=== PATIENT | male | born 1940 | race Hispanic/Latino ===

== ENCOUNTER 2017-10-31 17:01 | Inpatient (IN) | payer SELFPAY ==
--- NOTE | 2017-10-31 17:16 | EKG ---
Test Date: 2017-10-31 Test Time: 17:05:04 Laser Specialist: VALENCIA MEASUREMENT RESULTS: Intervals: Rate: 89 AL: 148 QRSD: 126 QT: 418 QTc: 508 [place]: P: 60 AL: 148 QRS: -46 T: 103 INTERPRETIVE STATEMENTS: Normal sinus rhythm Left axis deviation Nonspecific intraventricular block Lateral infarct, age undetermined T wave abnormality, consider lateral ischemia Abnormal ECG No previous ECG available for comparison Electronically Signed On 10-31-17 17:16:27 CDT by Spike Ordoñez
--- NOTE | 2017-10-31 17:37 | RAD REPORT ---
EXAM DESCRIPTION: Snow Single View10/31/2017 5:31 pm CLINICAL HISTORY: cough COMPARISON: none FINDINGS: [id number] bilateral pulmonary opacities are present. Small pleural effusions are s uspected. The heart is mildly enlarged IMPRESSION: CHF
[2017-10-31 17:42] LABS: Arterial Blood Carboxyhemoglob 1.6 % (0-1.5); Blood Gas Oxyhemoglobin 95.6 % (94-97); Blood O2 Saturation 97.4 % (92-98.5)
[2017-10-31 17:50] LABS: Absolute Monocytes 0.5 K/uL (0.1-1.3); Absolute Neutrophil 5.1 K/uL (1.8-8.0); Basophils % 0.6 % (0-1.3); Eosinophils % 1.9 % (0-4.4); Hematocrit 28.1 % (39.6-49.0); Lymphocytes % 14.5 % (15.3-44.8); MCH 27.6 pg (27.0-35.0); MCV 87.5 fL (80-100); MPV 8.1 fL (7.6-11.3); RBC Red Blood Cell Count 3.21 M/uL (4.33-5.43)
[2017-10-31 18:02] LABS: Albumin 2.9 g/dL (3.2-5.5); Bilirubin Direct 0.1 mg/dL (0-0.2); Bilirubin Total 0.6 mg/dL (0.3-1.2); Magnesium 2.1 mg/dL (1.8-2.5); Protein, Total 7.4 g/dL (6.0-8.3)
--- NOTE | 2017-10-31 18:36 | RAD REPORT ---
EXAM DESCRIPTION: CT - Head Brain Wo Cont - 10/31/2017 6:23 pm CLINICAL HISTORY: Lethargy, altered mental status COMPARISON: None. TECHNIQUE: Axial 5 mm thick images of the head were obtained without IV contrast. All CT scans are performed using dose optimization technique as appropriate and may include automated exposure control or mA/KV adjustment according to patient size. FINDINGS: No intracranial hemorrhage, mass, edema or shift of mid-line structures. No acute cortical based infarction. No cortical edema or sulcal effacement. Patient has moderately prominent atrophy a nd moderate chronic ischemic change. Old infarction changes are present in the frontal lobe white mat ter. No abnormal extra-axial fluid collections. Ventricles are in proportion to volume loss. Arterial and physiologic calcifications present. Atrophy includes the cerebellum. Mastoid air cells are clear. Frontal sinuses are completely opacified. Most of the ethmoid air cells are opacified. Maxillary sinuses are not at all imaged. No acute bony findings. IMPRESSION: Prominent atrophy and chronic ischemic change with no acute intracranial finding seen. Chronic ischemic changes can mask nonhemorrhagic acute infarction. MR brain followup can be obtained if there is ongoing concern for acute ischemia. Frontal and ethmoid sinus opacification. Maxillary sinuses are not imaged.
[2017-10-31] MEDS ORDERED: FUROSEMIDE 40 MG/4 ML VIAL ONE (19:17)
[2017-10-31] MEDS ORDERED: FUROSEMIDE 100 MG/10 ML VIAL IV ONE (19:18)
[2017-10-31 19:54] LABS: Urine Blood 3+ (NEG); Urine Glucose NEGATIVE (NEG); Urine Protein 3+ (NEG)
[2017-10-31 19:59] LABS: Barbiturates NEGATIVE; Benzodiazepines NEGATIVE; Cocaine NEGATIVE; METHAMPHETAM NEGATIVE; Opiates NEGATIVE
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
[2017-10-31 20:31] LABS: Phencyclidine ND; THC Cannibis ND
[2017-10-31] MEDS ORDERED: MORPHINE 2 MG/ML SYR IV PRN (22:35)
[2017-10-31] MEDS ORDERED: ONDANSETRON 4 MG/2 ML VIAL IV PRN (22:35)
[2017-10-31] MEDS: NA CHLORIDE 0.9% 1,000 ML IV SCH (23:35)
--- NOTE | 2017-11-01 05:36 | P.HP ---
Certification for Inpatient Patient admitted to: Inpatient With expected LOS: >2 Midnights Patient will require the following post-hospital care: None Practitioner: I am a practitioner with admitting privileges, knowledge of patient current condition, hospital course, and medical plan of care. Services: Services provided to patient in accordance with Admission requirements found in Title 42 Section 412.3 of the Code of Federal Regulations Patient History Date of Service: 10/31/17 Reason for admission: Respiratory distress/altered mental status History of Present Illness: Patient is a 77-year-old gentleman who presents to the hospital with altered mentation. Patient was seen in the emergency room and was found have pre renal azotemia along with altered mental status. Patient also has a slight urinary tract infection for what patient was started on IV antibiotics. Patient's lab data also revealed acute renal failure. Patient will be started on IV fluids and antibiotics and will reassess renal function in the morning. Nephrology consultation. Patient also has some respiratory distress and was placed on a BiPAP. Will continue this for now and reassess in the morning. Will also gently hydrate the patient as well. Continue to monitor renal function closely. Allergies No Known Allergies Allergy (Verified 11/01/17 00:40) Home Medications: Furosemide [Lasix] 40 mg PO DAILY 11/01/17 Isosorbide Mononitrate [Isosorbide Mononitrate ER] 30 mg PO DAILY 11/01/17 Metoprolol Tartrate [Lopressor] 100 mg PO BID 11/01/17 Tamsulosin [Flomax*] 1 cap PO DAILY 11/01/17 - Past Medical/Surgical History Has patient received pneumonia vaccine in the past: Yes Diabetic: Yes -: CHF -: renal disease -: UTI -: DM Past Surgical History: Patient denies surgical history - Family History Father Family History: Reviewed- Non-Contributory - Social History Smoking Status: Never smoker Alcohol use: No CD- Drugs: No Place of Residence: Home Review of Systems is unable to be obtained Physical Examination - Vital Signs Temperature: 97.2 F Blood Pressure: 146/97 Pulse: 87 Respirations: 18 Pulse Ox (%): 98 - Physical Exam General: Alert, In no apparent distress, Confused, Delirious HEENT: Atraumatic, PERRLA, Mucous membr. moist/pink, EOMI, Sclerae nonicteric Neck: Supple, 2+ carotid pulse no bruit, No LAD, Without JVD or thyroid abnormality Respiratory: Diminished, Crackles/rales, Rhonchi/gurgles Cardiovascular: Regular rate/rhythm, Normal S1 S2, No murmurs Gastrointestinal: Normal bowel sounds, Soft and benign, Non-distended, No tenderness, No rebound, No guarding Musculoskeletal: No clubbing, No tenderness, Swelling Integumentary: No rashes Neurological: Normal gait, Normal speech, Normal strength at 5/5 x4 extr, Normal tone, Sensation intact, Cranial nerves 3-12 intact, Normal affect Lymphatics: No axilla or inguinal lymphadenopathy - Studies Laboratory Data (last 24 hrs) 10/31/17 17:25: WBC 6.8, Hgb 8.9 L, Hct 28.1 L, Plt Count 433 H 10/31/17 17:25: Sodium 132 L, Potassium 4.0, BUN 76 H, Creatinine 3.66 H, Glucose 144 H, Magnesium 2.1, Total Bilirubin 0.6, AST 32, ALT 32, Alkaline Phosphatase 81 10/31/17 17:09: APTT Cancelled 10/31/17 17:09: B-Natriuretic Peptide Cancelled Assessment & Plan - Problems (Diagnosis) (1) [id number] kidney injury Current Visit: Yes Status: Acute (2) Altered mental status Current Visit: Yes Status: Acute (3) Respiratory distress Current Visit: Yes Status: Acute - Plan Plan: 1. Continue with IV hydration 2. Continue with IV antibiotics 3. Continue with pain control 4. NPO 5. Nephrology consultation; reassess for possible hemodialysis 6. Serial H&H, and we will monitor CBC, BMP, LFTs along with electrolytes. 7. GI and DVT prophylaxis Discharge Plan: Home Plan to discharge in: Greater than 2 days - Advance Directives Does patient have a Living Will: No Does patient have a Durable POA for Healthcare: No - Code Status/Comfort Care Code Status Assessed: Yes Code Status: Full Code Critical Care: No Time Spent Managing PTS Care (In Minutes): 45
[2017-11-01 05:41] LABS: Absolute Monocytes 0.8 K/uL (0.1-1.3); Absolute Neutrophil 6.7 K/uL (1.8-8.0); Basophils % 0.5 % (0-1.3); Eosinophils % 3.4 % (0-4.4); Hematocrit 28.4 % (39.6-49.0); Lymphocytes % 11.1 % (15.3-44.8); MCH 28.5 pg (27.0-35.0); MCV 88.2 fL (80-100); MPV 8.2 fL (7.6-11.3); Monocytes % 8.7 % (3.3-12.3); RBC Red Blood Cell Count 3.22 M/uL (4.33-5.43)
[2017-11-01 05:46] LABS: Protime INR 1.23
[2017-11-01 06:16] LABS: Albumin 2.6 g/dL (3.2-5.5); Bilirubin Total 0.5 mg/dL (0.3-1.2); Potassium 4.3 mEq/L (3.6-5.0); Protein, Total 6.9 g/dL (6.0-8.3)
--- NOTE | 2017-11-01 07:26 | RAD REPORT ---
EXAM DESCRIPTION: RAD - Chest Single View - 11/01/2017 6:29 am CLINICAL HISTORY: Dyspnea, acute kidney injury COMPARISON: October 31 TECHNIQUE: AP portable chest image was obtained 0616 hours . FINDINGS: Interstitial markings are diffusely prominent. Alveolar component is seen in the lower rig ht lung field. Trachea is midline. Prominent cardiomegaly is present similar or increased from prior imaging. Vascular engorgement is seen. No pneumothorax or enlarging pleural effusion. Small right ple ural effusion is suspected. No gross bony abnormality seen. No acute aortic findings suspected. IMPRESSION: Progressive CHF/volume overload pattern from prior day study. Airspace disease in the right base is still favored to be part of failure rather than superimposed pn eumonia.
[2017-11-01] MEDS ORDERED: NA CHLORIDE 0.9% 500 ML IV ONE (07:37)
[2017-11-01] MEDS ORDERED: Morphine 2 MG/2 ML SYR IV PRN (07:46)
[2017-11-01] MEDS: NA CHLORIDE 0.9% 1,000 ML IV SCH ×2 (08:23→18:10)
--- NOTE | 2017-11-01 11:25 | EKG ---
Test Date: 2017-11-01 Test Time: 08:54:12 Fagoter: VALENCIA MEASUREMENT RESULTS: Intervals: Rate: 88 AL: 144 QRSD: 126 QT: 412 QTc: 498 [place]: P: 0 AL: 144 QRS: -46 T: 94 INTERPRETIVE STATEMENTS: Normal sinus rhythm Possible Left atrial enlargement Left axis deviation Nonspecific intraventricular block Cannot rule out Anterior infarct, age undetermined T wave abnormality, consider lateral ischemia Abnormal ECG Compared to ECG 10/31/2017 17:05:04 No significant changes Electronically Signed On 11-01-17 11:23:42 CDT by Vijay Sandoval
[2017-11-01 11:58] LABS: Urine Appearance CLOUDY; Urine Bilirubin NEGATIVE (NEG); Urine Blood 3+ (NEG); Urine Color YELLOW; Urine Glucose NEGATIVE (NEG); Urine Protein 2+ (NEG); Urine Urobilinogen 0.2 mg/dL (0.2-1.0); Urine pH 5.5 (5.0-7.0)
[2017-11-01 12:03] LABS: Urine Microscopic Reflex ORDER UMIC
[2017-11-01 12:31] LABS: CKMB Creatine Kinase MB 4.2 ng/ml (0.3-4.0); Uric Acid 13.3 mg/dL (4.8-8.7)
[2017-11-01 13:50] LABS: Urine Bacteria 20-50 /HPF (NONE SEEN); Urine Culture Reflex Order REFLEXED; Urine RBC 20-50 /HPF (NONE SEEN)
[2017-11-01] MEDS: CEFTRIAXONE/SWI 1gm 1 GM/10 ML SYR IV SCH (14:05)
--- NOTE | 2017-11-01 14:18 | RAD REPORT ---
EXAM DESCRIPTION: US - Renal Ultrasound-Complete - 11/01/2017 1:47 pm CLINICAL HISTORY: Acute kidney injury. COMPARISON: None. FINDINGS: The right kidney is small in size and highly echogenic. The left kidney is normal in size with normal echogenicity and corticomedullary differentiation. The right kidney measures 6.3 x 3.2 x 02.9 cm. No hydronephrosis. Several small benign right renal cy sts. The left kidney measures 11.3 x 4.9 x 1.2 cm. No hydronephrosis. Several benign left renal cyst noted . Incidentally noted are bilateral pleural effusions. IMPRESSION: Small and highly echogenic right kidney compatible with underlying medical renal disease .
--- NOTE | 2017-11-01 18:16 | P.PN ---
Subjective Date of Service: 11/01/17 Chief Complaint: Respiratory distress/altered mental status The patient remain confused. No fever, no SOB. Physical Examination - Vital Signs Temperature: 98.9 F Blood Pressure: 142/86 Pulse: 97 Respirations: 18 Pulse Ox (%): 97 - Physical Exam General: Alert, In no apparent distress, Confused HEENT: Atraumatic, PERRLA, EOMI Neck: Supple, JVD not distended Respiratory: Normal air movement, Crackles/rales (bibasilar rales) Cardiovascular: Normal S1 S2, No gallops Gastrointestinal: Normal bowel sounds, No tenderness Musculoskeletal: No tenderness Integumentary: No rashes Neurological: Normal speech, Normal tone, Normal affect Assessment And Plan - Current Problems (Diagnosis) (1) UTI (urinary tract infection) Current Visit: Yes Status: Acute Qualifiers: Urinary tract infection type: acute cystitis Hematuria presence: without hematuria Qualified Code(s): N30.00 - Acute cystitis without hematuria (2) Acute encephalopathy Current Visit: Yes Status: Acute (3) Rtsvw-ri-vkbfrqy kidney injury Onset Date: 11/01/17 Current Visit: Yes Status: Acute Qualifiers: Acute renal failure type: unspecified Chronic kidney disease stage: unspecified stage Qualified Code(s): N17.9 - Acute kidney failure, unspecified ; N18.9 - Chronic kidney disease, unspecified; N18.9 - Chronic kidney disease, unspecified (4) Respiratory distress Onset Date: 11/01/17 Current Visit: Yes Status: Acute - Plan #1 acute encephalopathy: due to multiple etiology, including UTI, renal impairment. He is still confused. Continue monitoring. #2 Acute on CKD: creatinine is worse today. Follow up Dr Wynne. #3 UTI: urine culture in process. Continue empiric Ceftriaxone.
[2017-11-01] MEDS: ACETAMINOPHEN 500 MG TAB PO PRN (18:17)
--- NOTE | 2017-11-02 03:59 | CON ---
Date of Consultation: 11/01/2017 Additional Consulting Physician: Dr. Sawyer. Reason For Consultation: Elevated BUN and creatinine, fluid management. History Of Present Illness: This is a 77-year-old gentleman. All the information has been obtained by the help of a ct technologist, Mr. Zeng, the charge nurse. This is a 77-year-old gentleman with signi ficant past medical history of diabetes complicated with neuropathy and nephropathy, hypertension, hy perlipidemia, coronary artery disease complicated with congestive heart failure. The patient came to the hospital with altered mental status, found to have elevated BUN and creatinine. For that reason , we have been consulted. According to the patient, the patient known to have chronic kidney disease . Follow up with [employer] in chief newspaper in [place], but never mentioned that he goes to dialysis. The patient denied taking nonsteroidal. No recent change in his medication. No IV contrast. According to the patient, the patient being seen by the editor in chief newspaper every month lately, which means he is getting adv anced. The patient, no change in his medication. No other hospitalization. Primary workup for the patient show creatinine of 3.8 with GFR of 16. For that reason, we have been consulted. Past Medical History: Include: 1.Diabetes, complicated with neuropathy and nephropathy. 2.Chronic kidney disease, unknown stage. 3.Coronary artery disease complicated with congestive heart failure. 4.Hyperlipidemia. Home Medications: Include: 1.Lasix. 2.Isosorbide. 3.Metoprolol. 4.Flomax. Family History: Positive for hypertension and diabetes. Allergies: NO KNOWN DRUG ALLERGY. Social History: Denies smoking, denies drinking, denies drugs abuse. Current Medications: In the hospital include: 1.Ceftriaxone. 2.Morphine. 3.Zofran. Review of Systems: Head and Neck: No red eye. No ear pain. GI: No nausea, no vomiting. : No polyuria. No dysuria. No hematuria. FARMHAND: Not applicable. Respiratory: No shortness of breath. Cardiovascular: No chest pain. Neuro: No weakness. Physical Examination: Vital Signs: When I saw the patient, blood pressure 136/89, pulse of 97, afebrile. Chest: Clear to auscultation. Heart: S1, S2. Regular. Abdomen: Soft, nontender. Extremities: No edema. Neurologic: Alert and oriented x3. No tremor. Laboratory Data: Sodium 139, potassium 4.3, bicarb 28, chloride 103, BUN 73, creatinine 3.8, calcium 8.7, uric acid 13.3, albumin 2.6. WBC 8.8, H and H 9.2/28.4, platelets 402. WBC of 50 in the urine , +2 protein. Urine drug screen was negative. Assessment And Plan: 1.Acute kidney injury on chronic kidney disease, secondary to poor perfusion, acute tubular necrosis , superimposed with the diuresis use on the dry side. I am going to start the patient on normal sali ne 50 per hour and we will follow up the patient. We will go ahead and get renal ultrasound. UA wit h a protein-creatinine and with quantify urine. Request the record from his primary editor in chief newspaper and we will follow up. 2.We will hold on the Lasix for the time being. 3.Hypertension, controlled, optimal. Keep holding Lasix. We will follow up. 4.Pneumonia. Continue current antibiotic. 5.Urinary tract infection. I agree with the current dose of antibiotic. We will follow up culture. 6.Diabetes, as by Primary. 7.Altered mental status mostly metabolic encephalopathy secondary to sepsis, recovering. We will fo llow up. Case discussed with the patient, verbalized understanding. Discussed with primary charge nurse. CONNIE/ALFONSO Voice ID: [id number] Report ID: [id number]
[2017-11-02] MEDS: NA CHLORIDE 0.9% 1,000 ML IV SCH (05:00)
[2017-11-02 05:25] LABS: Absolute Lymphocytes (CBC) 0.8 K/uL (0.7-4.9); Absolute Neutrophil 14.6 K/uL (1.8-8.0); Basophils % 0.4 % (0-1.3); Hematocrit 27.1 % (39.6-49.0); MCH 27.9 pg (27.0-35.0); MCV 87.8 fL (80-100); MPV 7.9 fL (7.6-11.3); Monocytes % 5.8 % (3.3-12.3); RBC Red Blood Cell Count 3.09 M/uL (4.33-5.43)
[2017-11-02 05:51] LABS: Albumin 2.6 g/dL (3.2-5.5); BUN Blood Urea Nitrogen 73 mg/dL (6-20); Bicarbonate 28 mEq/L (21-31); Glucose Level 116 mg/dL (65-120); Phosphorus 5.4 mg/dL (2.5-4.3); Sodium Level 138 mEq/L (135-145)
[2017-11-02 06:19] LABS: Blood Morphology Comment NOT SEEN (NOT SEEN); Platelet Estimate ADEQ; Urine White Blood Cell Casts OK
--- NOTE | 2017-11-02 07:05 | RAD REPORT ---
EXAM DESCRIPTION: RAD - Chest Single View - 11/02/2017 6:42 am CLINICAL HISTORY: Shortness of breath COMPARISON: November 01, October 31 TECHNIQUE: AP portable chest image was obtained 0627 hours . FINDINGS: Lung volumes are low. Diffuse interstitial prominence, vascular engorgement and cardiomega ly are still present. Airspace component in the right lower lung field has increased slightly. This m ay be due to the poor inspiratory effort. Likewise, increased opacification left base is probably due to low lung volumes. Trachea is midline. No pneumothorax or enlarging pleural effusion. No gross bon y abnormality seen. No acute aortic findings suspected. IMPRESSION: CHF/volume overload pattern similar or slightly worse than prior day imaging. A more sha llow inspiratory effort accentuates heart, vasculature and lung markings. Airspace opacification is more pronounced in the right base. This is probably an asymmetric failure p attern though a superimposed right base pneumonia is possible.
[2017-11-02 08:12] LABS: UR CREAT 137.7 mg/dL
[2017-11-02] MEDS ORDERED: NA CHLORIDE 0.9% 1,000 ML IV SCH (09:00)
[2017-11-02] MEDS: CEFTRIAXONE/SWI 1gm 1 GM/10 ML SYR IV SCH (09:37)
--- NOTE | 2017-11-02 13:56 | PN ---
Date of Progress Note: 11/02/2017 Subjective: The patient was admitted to the hospital with acute kidney injury on advanced chronic ki dney disease. The patient started on hydration, feeling slightly better. Physical Examination: Vital Signs: Blood pressure 150/95, pulse of 100, afebrile. The patient had good urine output of 1 L. Chest: Crackles on the left base. Heart: S1, S2. Systolic murmur. Abdomen: Soft, nontender. Extremities: No edema. Laboratory Data: WBC 16.7, H and H 8.6/27.1, platelets 407. Sodium 138, potassium 4, bicarb 28, BUN 73, creatinine 3.4, GFR up to 17, calcium 8.4, phosphorus 5.4. Iron study still pending. PTH of 87 , albumin 2.6, corrected calcium 9.5. Protein creatinine is 1. Serology still pending. Renal ultra sound showing 6.3 on the right, 11.3 on the left. Chest x-ray, cardiomegaly with congestion. Medications: Current medications the patient on its include: 1.Ceftriaxone. 2.Tylenol. 3.Zofran. 4.IV fluid. 5.Morphine. Reviewing the record, apparently he was admitted to the hospital back in May 2017. At that time , creatinine 2 with GFR of 30. Assessment And Plan: 1.Acute kidney injury on chronic kidney disease/progression of his disease, multifactorial, secondar y to prerenal, on the recovery phase, looked to me on the normal volume side. I am going to disconti nue IV fluid and we will continue to monitor the patient. 2.Proteinuria with anemia. Workup is still pending. Mostly, it is secondary to diabetes. 3.Hypertension, controlled, not optimal. I will discontinue IV fluid and we will follow up the cat ent. 4.Pneumonia. Continue current antibiotic. Culture still pending. Current dose appropriate. 5.Urinary tract infection. We will follow up culture. Continue ceftriaxone. 6.Anemia. Waiting for the rest of the workup. Possible secondary to chronic kidney disease/iron de ficiency anemia. 7.Disproportion in the kidney size. Given his worsening in kidney function, I am going to go ahead and get renal scan to evaluate the perfusion and we will follow up the patient. This is to rule out any renal artery stenosis. Case discussed with the patient and the daughter by bedside, verbalized u nderstanding. Discussed with the charge nurse. TYRELL Voice ID: [id number] Report ID: [id number]
[2017-11-02 15:11] LABS: Transferrin 214 mg/dL (180-329)
--- NOTE | 2017-11-02 17:26 | P.PN ---
Subjective Date of Service: 11/02/17 Chief Complaint: Respiratory distress/altered mental status The patient is more alert today and also cooperative with his care. He was anxious to be discharged home or will leave AMA, but after explained what is his clinical status and the risk that will have if he goes home at this point, he decided to stay in the hospital. Physical Examination - Vital Signs Temperature: 98.2 F Blood Pressure: 138/90 Pulse: 99 Respirations: 20 Pulse Ox (%): 92 - Physical Exam General: Alert, In no apparent distress Respiratory: Clear to auscultation bilaterally, Normal air movement Cardiovascular: Regular rate/rhythm, Normal S1 S2 Gastrointestinal: Normal bowel sounds, No tenderness Musculoskeletal: No tenderness Integumentary: No rashes Neurological: Normal speech, Normal tone, Normal affect - Studies Medications List Reviewed: Yes Assessment And Plan - Current Problems (Diagnosis) (1) UTI (urinary tract infection) Current Visit: Yes Status: Acute Qualifiers: Urinary tract infection type: acute cystitis Hematuria presence: without hematuria Qualified Code(s): N30.00 - Acute cystitis without hematuria (2) Acute encephalopathy Current Visit: Yes Status: Acute (3) Nhzrd-qm-tprqwfy kidney injury Onset Date: 11/01/17 Current Visit: Yes Status: Acute Qualifiers: Acute renal failure type: unspecified Chronic kidney disease stage: unspecified stage Qualified Code(s): N17.9 - Acute kidney failure, unspecified ; N18.9 - Chronic kidney disease, unspecified; N18.9 - Chronic kidney disease, unspecified (4) Respiratory distress Onset Date: 11/01/17 Current Visit: Yes Status: Acute - Plan #1 acute encephalopathy: due to multiple etiology, including UTI, possible RLL pneumonia, renal impairment. He is more oriented today. Continue monitoring. #2 Acute on CKD: creatinine is still elevated but lower than yesterday. Follow up Dr Wynne. #3 UTI: urine culture shows gram negative rods. Continue Ceftriaxone. #4 pneumonia: CXR shows possible RLL consolidation. WBC count increased today. Will add Azithromycin to antibiotic plan.
[2017-11-02] MEDS: AZITHROMYCIN IV 500 MG in NA CHLORIDE 0.9% 250 ML IVPB SCH (19:52)
[2017-11-02] MEDS ORDERED: LORazepam 2 MG/ML VIAL IV ONE (23:30)
[2017-11-03 05:39] LABS: Albumin 2.4 g/dL (3.2-5.5); Phosphorus 5.7 mg/dL (2.5-4.3); Potassium 4.2 mEq/L (3.6-5.0)
[2017-11-03] MEDS: FUROSEMIDE 40 MG/4 ML VIAL ONE (06:27)
[2017-11-03] MEDS: CEFTRIAXONE/SWI 1gm 1 GM/10 ML SYR IV SCH (08:44)
[2017-11-03] MEDS: TAMSULOSIN 0.4 MG SR CAP PO SCH (08:45)
[2017-11-03] MEDS: ISOSORBIDE MONO SR 30 MG TAB PO SCH (08:45)
[2017-11-03] MEDS ORDERED: METOPROLOL TAR 50 MG TAB PO SCH (09:00)
[2017-11-03] MEDS: AZITHROMYCIN IV 500 MG in NA CHLORIDE 0.9% 250 ML IVPB SCH (09:04)
--- NOTE | 2017-11-03 09:14 | RAD REPORT ---
EXAM DESCRIPTION: NMAbdomen (Kidney) CLINICAL HISTORY: Acute kidney injury. COMPARISON: Ultrasound 11/01/2017 TECHNIQUE: Following intravenous administration of 10.4 mCi Tc99m MAG-3, posterior dynamic angiogra m and sequential static images of the kidneys were obtained. 40 mg Lasix was administered intravenous ly 10 minutes into the study. FINDINGS: Sequential static images show significant asymmetry of renal size. Uptake by the right dom seth, which is enlarged relative to the left, is significantly reduced. Both kidneys demonstrate signi ficant delay in excretory function. After Lasix, little change is seen in the delayed excretory funct ion from the left kidney. Slight excretion is noted involving the right kidney, however excretion is minimal. The T1/2 of excretion of activity is 7.5 minutes for the right kidney and 33 minutes for the left dom seth (normal T1/2 is <10 min; dilated but not obstructed collecting system T1/2 is >10 min but < 15 mi n and obstruction T1/2 is >15 - 20 min). The estimated contribution of the right kidney to total renal function is 66% and that of the left is 34%. IMPRESSION: Uptake in localization or pharmaceutical is seen involving the left kidney which is redu ad in size relative to the right. The lack of excretion from the left kidney may indicate underlying ATN. Poor uptake and localization of radiopharmaceutical by the right kidney with very minimal excretion. The right kidney overall appears enlarged.
[2017-11-03] MEDS ORDERED: FUROSEMIDE 40 MG/4 ML VIAL IV ONE (11:47)
[2017-11-03] MEDS: METOPROLOL TAR 25 MG TAB PO SCH ×2 (16:24→21:39)
--- NOTE | 2017-11-03 17:48 | PN ---
Date of Progress Note: 11/03/2017 Subjective: The patient has some shortness of breath today. No nausea. No vomiting. Physical Examination: Vital Signs: Blood pressure 100/67, pulse of 73, afebrile. The patient had urine output of 1 L. Chest: Crackles bilateral. Heart: S1, S2. Regular. Abdomen: Soft, nontender. Extremities: No edema. Laboratory Data: WBC 16.7, H and H 8.6/27.1, platelets 407. Sodium 136, potassium 4.2, bicarb 26, B UN 70, creatinine 3.5, calcium 8.3, phosphorus 5.7. Medications: Current medications the patient on its include: 1.Z-Daniel. 2.Meropenem. 3.Flomax. 4.Isosorbide. 5.Metoprolol. 6.Zofran. 7.Morphine. Assessment And Plan: 1.Chronic kidney disease, stage 4, advanced with acute kidney injury, slightly on the wet side. I a m going to go ahead and give him single dose of Lasix and we will monitor. 2.Hypertension, controlled, optimal. Continue current medication. We will go ahead given low blood pressure. I am going to go ahead and decrease his metoprolol to 25 mg. 3.Urinary tract infection secondary to ESBL. We will switch the patient to meropenem. TYRELL Voice ID: [id number] Report ID: [id number]
--- NOTE | 2017-11-03 18:43 | P.PN ---
Subjective Date of Service: 11/03/17 Chief Complaint: Respiratory distress/altered mental status more sleepy today, no fever. Physical Examination - Vital Signs Temperature: 98.4 F Blood Pressure: 123/80 Pulse: 74 Respirations: 16 Pulse Ox (%): 99 - Physical Exam General: Alert, In no apparent distress, Other (obtunded) Respiratory: Clear to auscultation bilaterally, Normal air movement Cardiovascular: Regular rate/rhythm, Normal S1 S2 Gastrointestinal: Normal bowel sounds, No tenderness Musculoskeletal: No tenderness Integumentary: No rashes Neurological: Normal speech, Normal tone, Normal affect - Studies Medications List Reviewed: Yes Assessment And Plan - Current Problems (Diagnosis) (1) UTI (urinary tract infection) Current Visit: Yes Status: Acute Qualifiers: Urinary tract infection type: acute cystitis Hematuria presence: without hematuria Qualified Code(s): N30.00 - Acute cystitis without hematuria (2) Acute encephalopathy Current Visit: Yes Status: Acute (3) Izwqd-ad-cgncxun kidney injury Onset Date: 11/01/17 Current Visit: Yes Status: Acute Qualifiers: Acute renal failure type: unspecified Chronic kidney disease stage: unspecified stage Qualified Code(s): N17.9 - Acute kidney failure, unspecified ; N18.9 - Chronic kidney disease, unspecified; N18.9 - Chronic kidney disease, unspecified (4) Respiratory distress Onset Date: 11/01/17 Current Visit: Yes Status: Acute - Plan #1 acute encephalopathy: due to multiple etiology, including UTI, possible RLL pneumonia, renal impairment. Today he is more obtunded, no fever #2 Acute on CKD: creatinine is still elevated. Follow up Dr Wynne, he recommend Lasix at this time. #3 UTI: urine culture shows E.Coli with ESBL. Antibiotics were switch to Meropenem. #4 pneumonia: CXR shows possible RLL consolidation. WBC count increased today. Continue IV abx.
[2017-11-03] MEDS ORDERED: Meropenem 500 MG VIAL IV SCH (21:00)
[2017-11-03] MEDS: Meropenem 500 MG in NA CHLORIDE 0.9% 100 ML IV SCH (21:41)
[2017-11-04] MEDS: LORazepam 2 MG/ML VIAL IV PRN (00:01)
[2017-11-04 05:27] LABS: Absolute Lymphocytes (CBC) 0.8 K/uL (0.7-4.9); Absolute Monocytes 0.7 K/uL (0.1-1.3); Absolute Neutrophil 7.2 K/uL (1.8-8.0); Basophils % 0.3 % (0-1.3); Eosinophils % 4.2 % (0-4.4); Hematocrit 25.8 % (39.6-49.0); Lymphocytes % 8.7 % (15.3-44.8); MCH 29.1 pg (27.0-35.0); MCV 87.6 fL (80-100); MPV 8.1 fL (7.6-11.3); RBC Red Blood Cell Count 2.94 M/uL (4.33-5.43)
[2017-11-04 05:42] LABS: Albumin 2.4 g/dL (3.2-5.5); Phosphorus 6.5 mg/dL (2.5-4.3); Potassium 4.4 mEq/L (3.6-5.0)
[2017-11-04] MEDS: TAMSULOSIN 0.4 MG SR CAP PO SCH (08:39)
[2017-11-04] MEDS: METOPROLOL TAR 25 MG TAB PO SCH ×2 (08:40→21:54)
[2017-11-04] MEDS: ISOSORBIDE MONO SR 30 MG TAB PO SCH (08:40)
[2017-11-04] MEDS: AZITHROMYCIN IV 500 MG in NA CHLORIDE 0.9% 250 ML IVPB SCH (08:42)
[2017-11-04] MEDS: Meropenem 500 MG in NA CHLORIDE 0.9% 100 ML IV SCH ×2 (08:42→21:53)
[2017-11-04 13:50] LABS: HBsAG Nonreactive (Nonreactive)
--- NOTE | 2017-11-04 16:40 | P.PN ---
Subjective Date of Service: 11/04/17 Primary Care Provider: BIANCA Davison Chief Complaint: Respiratory distress/altered mental status Subjective: Improving Physical Examination - Vital Signs Temperature: 97.5 F Blood Pressure: 119/78 Pulse: 80 Respirations: 18 Pulse Ox (%): 97 - Physical Exam General: Alert, In no apparent distress, Cooperative HEENT: Atraumatic Neck: Supple Respiratory: Crackles/rales (Bilateral) Cardiovascular: Normal pulses, Regular rate/rhythm Gastrointestinal: Normal bowel sounds, Soft and benign, Non-distended, No tenderness, No masses, No rebound, No guarding Musculoskeletal: No erythema, No tenderness, No warmth Integumentary: No erythema, No warmth, No cyanosis Neurological: Normal speech, Normal strength at 5/5 x4 extr, Normal tone - Studies Medications List Reviewed: Yes Assessment & Plan - Problems (Diagnosis) (1) Bghiv-cx-tbwtrxe kidney injury Onset Date: 11/01/17 Current Visit: Yes Status: Acute Plan: Patient still appears wet. Will continue with fluid restriction and Lasix. Will continue monitor renal function. Nephrology consulted. Await further recommendation. Will monitor chest x-ray s. Will monitor lab closely. Qualifiers: Acute renal failure type: unspecified Chronic kidney disease stage: stage 4 (severe) Qualified Code(s): N17.9 - Acute kidney failure, unspecified; N18.4 - Chronic kidney disease, stage 4 (severe); N18.4 - Chronic kidney disease , stage 4 (severe); N18.4 - Chronic kidney disease, stage 4 (severe); N18.4 - Chronic kidney disease, stage 4 (severe) (2) CHF (congestive heart failure) Onset Date: 11/01/17 Current Visit: Yes Status: Suspected Plan: Suspect congestive heart failure. Will order echocardiogram to assess. Will continue with fluid restriction and Lasix. Will monitor chest x-ray. Qualifiers: Heart failure type: systolic Heart failure chronicity: acute on chronic Qualified Code(s): I50.23 - Acute on chronic systolic (congestive) heart failure (3) Anemia Current Visit: Yes Status: Acute Plan: Will monitor closely. This is likely of chronic disease. Qualifiers: Anemia type: due to chronic kidney disease Chronic kidney disease stage: stage 4 (severe) Qualified Code(s): N18.4 - Chronic kidney disease, stage 4 ( severe); D63.1 - Anemia in chronic kidney disease; D63.1 - Anemia in chronic kidney disease (4) Hypertension Current Visit: Yes Status: Chronic Plan: Will continue with medication. Qualifiers: Hypertension type: essential hypertension Qualified Code(s): I10 - Essential (primary) hypertension (5) UTI (urinary tract infection) Current Visit: Yes Status: Acute Plan: Will continue with Merrem. Patient will need 7 days worth of antibiotic therapy. Patient will likely be here through the . Therefore will continue with antibiotic therapy until Tuesday. Will repeat blood cultures on Tuesday. Qualifiers: Urinary tract infection type: acute cystitis Hematuria presence: without hematuria Qualified Code(s): N30.00 - Acute cystitis without hematuria Discharge Plan: Home Plan to discharge in: Greater than 2 days Time Spent Managing Pts Care (In Minutes): 55
[2017-11-04] MEDS: FUROSEMIDE 40 MG/4 ML VIAL IV SCH (16:58)
[2017-11-04] MEDS: ENOXAPARIN 30 MG/0.3 ML SQ SCH (16:58)
[2017-11-04 17:21] LABS: HIV 1/2 Antibody Diff Not indicated.; HIV AG/AB 4TH GEN Non-reactive (Non-reactive)
[2017-11-04] MEDS: ALPRAZOLAM 0.5 MG TABLET PO PRN ×2 (17:37→21:54)
[2017-11-04 20:53] LABS: Albumin, (SPE) 2.8 g/dL (3.8-4.8); Alpha-1-Globulins 0.5 g/dL (0.2-0.3); Alpha-2-Globulins 0.7 g/dL (0.5-0.9); Gamma Globulins 1.8 g/dL (0.8-1.7); INTERPRETATION REPORT
[2017-11-04 21:36] LABS: Hepatitis C Virus RNA (PCR)log <1.18 log IU/mL
--- NOTE | 2017-11-05 02:59 | PN ---
Date of Progress Note: 11/04/2017 Subjective: The patient is complaining of some shortness of breath. The patient had ESBL UTI. Wait ing for arrangement for antibiotics. Physical Examination: Vital Signs: Blood pressure 139/89, pulse 92, and afebrile. Chest: Crackles bilateral. Heart: S1, S2. Regular. Abdomen: Soft, nontender. Extremities: +3 edema. Laboratory Data: WBC 9.2, H and H 8.6/25.8, and platelets 338. Sodium 136, potassium 4.4, bicarb 27 , BUN 78, creatinine 3.9, GFR of 15, calcium 8.2, phosphorus 6.8, albumin 2.4, and corrected calcium is 9.4. Medications: Current medications the patient is on include; 1.Meropenem 500 b.i.d. 2.Flomax. 3.Lovenox. 4.Isosorbide. 5.Metoprolol 25 b.i.d. 6.Lorazepam. 7.Lasix received yesterday 40. 8.Zofran. Assessment And Plan: 1.Chronic kidney disease, slow progression, over-volume. I am going to start the patient on daily d iuresis, and we will follow up. 2.Hypertension. We will utilize the blood pressure for more diuresis. I am going to go ahead and d iscontinue isosorbide. 3.Secondary hyperparathyroidism. We will start the patient on Tums. We will follow up. 4.Urinary tract infection, extended-spectrum beta-lactamase. Started on meropenem. We are waiting for outpatient arrangement for antibiotic. TYRELL Voice ID: [id number] Report ID: [id number]
[2017-11-05 05:43] LABS: Absolute Lymphocytes (CBC) 1.1 K/uL (0.7-4.9); Absolute Monocytes 0.7 K/uL (0.1-1.3); Absolute Neutrophil 5.7 K/uL (1.8-8.0); Basophils % 0.8 % (0-1.3); Eosinophils % 5.9 % (0-4.4); Hematocrit 28.2 % (39.6-49.0); Lymphocytes % 13.1 % (15.3-44.8); MCV 87.3 fL (80-100); MPV 8.2 fL (7.6-11.3); Monocytes % 9.2 % (3.3-12.3); RBC Red Blood Cell Count 3.23 M/uL (4.33-5.43)
[2017-11-05 05:49] LABS: Albumin 2.5 g/dL (3.2-5.5); Magnesium 2.2 mg/dL (1.8-2.5); Phosphorus 6.6 mg/dL (2.5-4.3); Potassium 4.1 mEq/L (3.6-5.0)
[2017-11-05] MEDS: METOPROLOL TAR 25 MG TAB PO SCH ×2 (08:43→20:15)
[2017-11-05] MEDS: FUROSEMIDE 40 MG/4 ML VIAL IV SCH (08:43)
[2017-11-05] MEDS: TAMSULOSIN 0.4 MG SR CAP PO SCH (08:43)
[2017-11-05] MEDS: CALCIUM CARBONATE CHEW 500MG TAB PO SCH ×3 (08:43→16:22)
[2017-11-05] MEDS: Meropenem 500 MG in NA CHLORIDE 0.9% 100 ML IV SCH ×2 (08:44→20:14)
--- NOTE | 2017-11-05 11:21 | RAD REPORT ---
EXAM DESCRIPTION: RAD - Chest Single View - 11/05/2017 6:10 am CLINICAL HISTORY: Shortness of breath COMPARISON: 11/02/2017 FINDINGS: Portable technique limits examination quality. Moderate improvement in lung aeration is seen since the comparative study. Mild bilateral pulmonary o pacities persists, asymmetric on the right. The heart is significantly enlarged with small pleural ef fusions. No displaced fractures. IMPRESSION: Moderate improvement in CHF pattern.
[2017-11-05] MEDS ORDERED: FUROSEMIDE 40 MG/4 ML VIAL IV ONE (13:30)
[2017-11-05] MEDS: SOD FERRIC GLUC COMPLX/SUCROSE 250 MG in NA CHLORIDE 0.9% 250 ML IV SCH (13:51)
--- NOTE | 2017-11-05 15:05 | PN ---
Date of Progress Note: 11/05/2017 Subjective: The patient seen and examined, chart reviewed, and case discussed with RN. The patient states that his breathing is better. Still having significant amount of lower extremity edema. Review of Systems: Negative except as above. Medications: Reviewed. Physical Examination: Vital Signs: Temperature 97, heart rate 79, blood pressure 141/91, respirations 18, and O2 100% on 2 L via nasal cannula. General: Awake, alert, and oriented x3. No acute distress. Elderly male. CV: S1 and S2. No murmurs. Peripheral pulses present. Respiratory: Diminished breath sounds. There is some crackles heard. Gastrointestinal: Abdomen is soft, nontender, nondistended. Positive bowel sounds. Extremities: No clubbing, cyanosis, 2+ edema up to the shins bilaterally. Neurologic: Nonfocal. Laboratory Data: Sodium is 136, potassium 4.1, chloride 103, CO2 of 26, BUN 84, creatinine 3.97, glu cose 92, calcium 8.2, phosphorus 6.6, magnesium 2.2. WBC 8, H and H are 9 and 28.2, platelets 432, n eutrophils 71%. Urine culture shows ESBL producing E. coli. Chest x-ray pending. Assessment And Plan: A 77-year-old male with; 1.Acute on chronic kidney injury. The patient is still on the wet side. We will continue with flui d restriction, Lasix. Monitor creatinine. Appreciate Nephrology input. We will monitor creatinine closely. 2.Congestive heart failure, acute on chronic systolic dysfunction. Echocardiogram pending. We will continue diuresis. Monitor I's and O's. Fluid restriction. 3.Anemia of chronic disease, secondary to chronic kidney disease stage 4. We will monitor H and H. 4.Essential hypertension. Resume home medications as appropriate, stable. 5.Urinary tract infection, secondary to extended spectrum beta-lactamase producing Escherichia coli, acute cystitis without hematuria. The patient will complete his antibiotic therapy with Merrem on . Due to patient's lack of resources he is unable to get PICC line and outpatient IV antibioti cs. 6.Gastrointestinal and deep venous thrombosis prophylaxis, addressed. /ALFONSO Voice ID: [id number] Report ID: [id number]
--- NOTE | 2017-11-05 16:05 | PN ---
Date of Progress Note: 11/05/2017 Subjective: The patient doing well. Still has shortness of breath and leg edema. Physical Examination: Vital Signs: Blood pressure 129/83, pulse of 78. Chest: Crackles bilateral. Heart: S1, S2. Regular. Abdomen: Soft, nontender. Extremities: +2 edema. Laboratory Data: WBC 8, H and H 04/07.2, platelets 432. Sodium 136, potassium 4, bicarb 26, BUN 84, creatinine 3.9, calcium 8.2, phosphorus 6.6, magnesium 2.2, albumin 2.5, corrected calcium is 9.4. S PEP, chronic inflammatory. TSAT is 6, ferritin of 67. JENNYFER was negative. Hepatitis was negative. H IV was negative. Medications: Current medications the patient on its include: 1.Meropenem. 2.Flomax. 3.Calcium carbonate. 4.Metoprolol 25 b.i.d. 5.Lasix 40 daily. 6.Zofran. Assessment And Plan: 1.Chronic kidney disease, advanced, slightly on the over volume side. I am going to go ahead and gi ve him extra dose of Lasix. We will increase the Lasix to 40 b.i.d. and we will monitor. 2.Hypertension, controlled, optimal. We will utilize blood pressure for more diuresis. 3.Urinary tract infection secondary to ESBL. Continue meropenem. 4.Edema secondary to renal failure. Continue diuresis. 5.Pneumonia. Continue current antibiotic. TYRELL Voice ID: [id number] Report ID: [id number]
[2017-11-05] MEDS: ENOXAPARIN 30 MG/0.3 ML SQ SCH (16:22)
[2017-11-05] MEDS ORDERED: FUROSEMIDE 40 MG/4 ML VIAL IV SCH (17:00)
[2017-11-05 19:27] LABS: P-ANCA Anti-Myeloperoxidase Ab 2.1 AI (<1.0)
[2017-11-05] MEDS: ALPRAZOLAM 0.5 MG TABLET PO PRN (20:56)
[2017-11-06] MEDS: FUROSEMIDE 40 MG/4 ML VIAL IV SCH ×3 (04:15→16:56)
[2017-11-06 06:18] LABS: Absolute Lymphocytes (CBC) 0.8 K/uL (0.7-4.9); Absolute Monocytes 0.7 K/uL (0.1-1.3); Absolute Neutrophil 4.3 K/uL (1.8-8.0); Basophils % 1.1 % (0-1.3); Eosinophils % 6.4 % (0-4.4); Hematocrit 26.6 % (39.6-49.0); Lymphocytes % 13.1 % (15.3-44.8); MCH 28.5 pg (27.0-35.0); MCV 85.7 fL (80-100); MPV 7.7 fL (7.6-11.3); Monocytes % 11.5 % (3.3-12.3)
[2017-11-06 06:51] LABS: Albumin 2.4 g/dL (3.2-5.5); Phosphorus 6.2 mg/dL (2.5-4.3); Potassium 4.1 mEq/L (3.6-5.0)
--- NOTE | 2017-11-06 07:43 | RAD REPORT ---
EXAM DESCRIPTION: RAD - Chest Single View - 11/06/2017 5:57 am CLINICAL HISTORY: Chest pain, shortness of breath COMPARISON: November 05 TECHNIQUE: AP portable chest image was obtained 0544 hours . FINDINGS: Exam has motion degradation limitation. Lung volumes are also low. Enlarged cardiac silhou ette is again noted. Vascular engorgement and prominent interstitial markings again noted. Findings r emain more pronounced in the right lung base. No pneumothorax or enlarging pleural fluid collection. Right-sided pleural fluid may be slightly reduced. IMPRESSION: Moderate CHF/volume overload pattern not substantially different from the comparison.
[2017-11-06] MEDS: CALCIUM CARBONATE CHEW 500MG TAB PO SCH ×3 (08:08→16:57)
[2017-11-06] MEDS: METOPROLOL TAR 25 MG TAB PO SCH ×2 (08:09→21:44)
[2017-11-06] MEDS: TAMSULOSIN 0.4 MG SR CAP PO SCH (08:09)
[2017-11-06] MEDS: Meropenem 500 MG in NA CHLORIDE 0.9% 100 ML IV SCH ×2 (08:10→21:43)
--- NOTE | 2017-11-06 13:30 | PN ---
Date of Progress Note: 11/06/2017 Subjective: The patient is seen and examined. Chart reviewed and case discussed with RN and Dr. Michael oconnell. The patient states his breathing is doing okay, wanting to know when he can leave. Review of Systems: Negative except as above. Medications: Reviewed. Physical Examination: Vital Signs: Temperature 97.2, heart rate 84, blood pressure 139/91, respirations 18, O2 100% on 2 L via nasal cannula. General: Awake, alert, oriented x3. Some mild distress, ill-appearing elderly male. CV: S1, S2. Regular rate and rhythm. Peripheral pulses weak bilaterally. Respiratory: Diminished breath sounds. Some crackles heard on the right base, otherwise moving air well. Gastrointestinal: Abdomen is soft, nontender, and nondistended. Positive bowel sounds. Extremities: No clubbing, cyanosis. 3+ edema. Neurologic: Nonfocal. Laboratory Data: Sodium 136, potassium 4.1, chloride 102, CO2 24, BUN 81, creatinine 3.86, glucose 9 4, calcium 8.1. WBC 6.3, H and H 8.8 and 26.6, platelets 409, neutrophils 67%. Urine culture shows E. coli ESBL producing. Blood cultures negative. Final chest x-ray personally reviewed shows modera te CHF, volume overload, pattern not substantially different from comparison. Right-sided pleural fl uid may be slightly reduced. Assessment And Plan: This is a 77-year-old male with: 1.Acute on chronic kidney injury. We will continue with IV diuresis. Nephrology has increased dose of Lasix, appreciate their input. We will continue to monitor creatinine and fluid intake. 2.Congestive heart failure, acute on chronic systolic dysfunction. Continue congestive heart failur e guidelines and diuresis. Monitor I's and O's. Fluid restriction. 3.Anemia of chronic disease secondary to chronic kidney disease, stage 4. We will monitor H and H, transfuse as needed. 4.Essential hypertension, stable. 5.Urinary tract infection secondary to ESBL producing Escherichia coli. Acute cystitis without romi turia. We will continue meropenem, which will be completed on Tuesday. 6.Gastrointestinal and deep venous thrombosis prophylaxis addressed. Plan: Continue diuresis. The patient still has significant CHF findings on chest x-ray, has signifi cant peripheral edema. Lasix dose has been increased. We will continue meropenem renally dosed. /ALFONSO Voice ID: [id number] Report ID: [id number]
[2017-11-06] MEDS: ENOXAPARIN 30 MG/0.3 ML SQ SCH (16:57)
--- NOTE | 2017-11-07 04:13 | PN ---
Date of Progress Note: 11/06/2017 Subjective: The patient admitted with acute kidney injury, progression of kidney disease, UTI ESBL. Physical Examination: Vital Signs: Blood pressure 146/95, pulse of 100 afebrile. Chest: Crackles bilateral more prominent right base. Heart: S1, S2. Regular. Abdomen: Soft, nontender. Extremities: +3 edema. Laboratory Data: WBC 6.3, H and H 8.8/26.6, platelet 409. Sodium 136, potassium 4.1, bicarb 24, BUN 81, creatinine 3.8, GFR of 15, calcium 8.1, phos 6.2, magnesium of 2. Current Medications: The patient on its include: 1.Meropenem 500 b.i.d. 2.Flomax. 3.IV iron. 4.Lovenox. 5.Metoprolol 25 b.i.d. 6.Alprazolam. 7.Lasix b.i.d. 8.Zofran. Assessment And Plan: 1.Chronic kidney disease with progression of his disease, over volume. I am going to go ahead and i ncrease the Lasix to 80 mg. We will go ahead and add metolazone low-dose and we will monitor. 2.Hypertension. We will utilize the blood pressure for more diuresis. 3.Anasarca secondary to renal failure. Continue diuresis. 4.Urinary tract infection, extended-spectrum beta-lactamase. Continue meropenem. 5.Proteinuria. SPEP serology so far negative. We will continue to follow up the rest of the serology. Continue current treatment. 6.Iron deficiency anemia. Continue IV iron. TYRELL Voice ID: [id number] Report ID: [id number]
[2017-11-07 06:17] LABS: Magnesium 2.1 mg/dL (1.8-2.5); Potassium 4.3 mEq/L (3.6-5.0)
[2017-11-07 06:54] LABS: Absolute Lymphocytes (CBC) 0.7 K/uL (0.7-4.9); Absolute Monocytes 0.9 K/uL (0.1-1.3); Absolute Neutrophil 4.6 K/uL (1.8-8.0); Basophils % 0.9 % (0-1.3); Eosinophils % 5.6 % (0-4.4); Hematocrit 26.9 % (39.6-49.0); Lymphocytes % 10.6 % (15.3-44.8); MCH 28.1 pg (27.0-35.0); MCV 86.9 fL (80-100); MPV 8.2 fL (7.6-11.3); Monocytes % 13.8 % (3.3-12.3); RBC Red Blood Cell Count 3.09 M/uL (4.33-5.43)
[2017-11-07] MEDS: CALCIUM CARBONATE CHEW 500MG TAB PO SCH ×3 (08:09→17:32)
[2017-11-07] MEDS: METOPROLOL TAR 25 MG TAB PO SCH ×2 (08:09→21:15)
[2017-11-07] MEDS: TAMSULOSIN 0.4 MG SR CAP PO SCH (08:09)
[2017-11-07] MEDS: FUROSEMIDE 40 MG/4 ML VIAL IV SCH ×2 (08:10→17:32)
[2017-11-07] MEDS: Meropenem 500 MG in NA CHLORIDE 0.9% 100 ML IV SCH ×2 (08:10→21:18)
[2017-11-07] MEDS ORDERED: METOLAZONE 2.5 MG TABLET PO SCH (09:00)
--- NOTE | 2017-11-07 11:34 | PN ---
Date of Progress Note: 11/07/2017 Subjective: The patient seen and examined. Chart reviewed and case discussed with RN. The patient does not any significant difficulty breathing; however, not very mobile. Review of Systems: Negative except as above. Medications: Reviewed. Physical Examination: Vital Signs: Temperature 97, heart rate 91, blood pressure 144/92, respirations 18 with O2 93% on 2 L via nasal cannula. General: Awake, alert, oriented x3, in some mild distress due to respiratory distress. Elderly male , somewhat ill-appearing. CV: S1, S2. No murmurs. Regular rate and rhythm. Peripheral pulses present. Respiratory: Diminished breath sounds. Some crackles heard on the right base. No wheezing. Gastrointestinal: Abdomen is soft, nontender, and nondistended. Positive bowel sounds. Extremities: No clubbing, cyanosis. 3+ edema in bilateral lower extremities. Neurologic: Nonfocal. Laboratory Data: Sodium 139, potassium 4.3, chloride 102, CO2 27, BUN 83, creatinine 3.74, glucose 9 5, calcium 8.2, magnesium 2.1. WBC 6.6, H and H 8.7 and 26.9, platelets 410, neutrophils 69%. Urine culture shows E. coli, ESBL producing blood cultures negative final. Assessment And Plan: A 77-year-old male with: 1.Acute on chronic kidney injury. Continue IV diuresis. Lasix dose was adjusted. We will monitor I's and O's strictly. The patient's overall weight has decreased by 10 pounds, likely has -10 L tariq nce. 2.Acute on chronic systolic heart failure. We will continue with congestive heart failure guideline s, monitor I's and O's, and continue fluid restriction. We will repeat chest x-ray in a.m. 3.Anemia of chronic disease secondary to chronic kidney disease, stage 4. Monitor H and H, transfus e as needed. 4.Essential hypertension, stable. 5.Urinary tract infection, acute cystitis without hematuria, secondary to ESBL producing Escherichia coli. We will continue meropenem, treatment to be completed tomorrow. 6.Gastrointestinal and deep venous thrombosis prophylaxis addressed. /ALFONSO Voice ID: [id number] Report ID: [id number]
--- NOTE | 2017-11-07 12:48 | ECHO ---
HEIGHT: 5 ft 7 in WEIGHT: 177 lb 1 oz DATE OF STUDY: 11/07/[address]: Deni Mckeon DO 2-DIMENSIONAL: YES M.MODE: YES DOPPLER: YES COLOR FLOW: YES TDS: PORTABLE: DEFINITY: BUBBLE STUDY: DIAGNOSIS: EVALUATE FOR CONGESTIVE HEART FAILURE CARDIAC HISTORY: CATHERIZATION: NO SURGERY: NO PROSTHETIC VALVE: NO PACEMAKER: NO MEASUREMENTS (cm) DIASTOLIC (NORMALS) SYSTOLIC (NORMALS) IVSd 1.3 (0.6-1.2) LA Diam 5.1 (1.9-4.0) LVEF 30-34% LVIDd 6.0 (3.5-5.7) LVIDs 5.5 (2.0-3.5) %FS % LVPWd 1.3 (0.6-1.2) Ao Diam 3.2 (2.0-3.7) 2 DIMENSIONAL ASSESSMENT: RIGHT ATRIUM: DILATED LEFT ATRIUM: DILATED RIGHT VENTRICLE: NORMAL LEFT VENTRICLE: LEFT VENTRICULAR HYPERTROPHY TRICUSPID VALVE: NORMAL MITRAL VALVE: MITRAL ANNULAR CALCIFICATION PULMONIC VALVE: NORMAL AORTIC VALVE: SCLEROSIS PERICARDIAL EFFUSION: NONE AORTIC ROOT: LEFT VENTRICULAR WALL MOTION: GLOBAL HYPOKINESIS, APICAL SEPTAL AKINESIS DOPPLER/COLOR FLOW: MODERATE MITRAL REGURGITATION. MILD AORTIC REGURGITATION. TRICUSPID REGURGITATION. ESTIMATED RIGHT VENTRICULAR SYSTOLIC PRESSURE 56 mmHg (MODERATE PULMONARY HYPERTENSION). COMMENTS: DEPRESSED LEFT VENTRICULAR EJECTION FRACTION WITH WALL MOTION ABNORMALITY. DILATED RIGHT ATRIUM, LEFT ATRIUM AND LEFT VENTRICLE. AORTIC SCLEROSIS WITH NO AORTIC STENOSIS. MODERATE MITRAL REGURGITATION. MILD AORTIC AND TRICUSPID REGURGITATION. MODERATE PULMONARY HYPERTENSION. TECHNOLOGIST: SKYLER CLINE
[2017-11-07] MEDS: ENOXAPARIN 30 MG/0.3 ML SQ SCH (17:32)
[2017-11-07] MEDS: ALPRAZOLAM 0.5 MG TABLET PO PRN (21:15)
--- NOTE | 2017-11-08 02:36 | PN ---
Date of Progress Note: 11/07/2017 Chief Complaint: Chronic kidney disease stage 4, Subjective: Progressive worsening renal function associated with anasarca; sfsle-ia-ergreye kidney injury, severe, nonoliguric with fluid overload. The patient has been treated with Lasix. Review of Systems: The patient denies PND, orthopnea. Physical Examination: Lungs: Crackles bilaterally present Heart: S1, S2. Abdomen: Soft, benign, nontender. Extremities: 2+ edema. Laboratory Data: Hemoglobin 8.7, WBC 6.6, platelet count is 410,000. Chemistries showed sodium 139, potassium 4.3, chloride 102 CO2 27, BUN 83, creatinine 3.74, calcium 8.2, magnesium 2.1. Impression And Plan: 1. Acute kidney injury, nonoliguric, associated with fluid overload and high BUN and creatinine ratio. The patient has anasarca. Continue diuretics. Monitor fluid balance and urine output. 2. Urinary tract infection. Continue meropenem for urinary tract infection. 3. Proteinuria. Pending workup, monoclonal gammopathy of unknown significance. 4. Iron deficiency anemia. The patient was started on IV iron. 5. Chronic kidney disease with proteinuria and acute kidney injury with anasarca. The patient may need to start dialysis if response to diuretic therapy is suboptimal. I spent total 36 min including 26 min to coordinate care plan. LIZZETTE/ALFONSO Voice ID: [id number] Report ID: [id number] KURTIS
[2017-11-08 05:15] LABS: Absolute Lymphocytes (CBC) 0.9 K/uL (0.7-4.9); Absolute Monocytes 0.9 K/uL (0.1-1.3); Absolute Neutrophil 5.4 K/uL (1.8-8.0); Basophils % 0.9 % (0-1.3); Eosinophils % 4.9 % (0-4.4); Hematocrit 25.9 % (39.6-49.0); Lymphocytes % 11.3 % (15.3-44.8); MCH 28.8 pg (27.0-35.0); MCV 86.7 fL (80-100); MPV 7.8 fL (7.6-11.3); Monocytes % 11.4 % (3.3-12.3); RBC Red Blood Cell Count 2.98 M/uL (4.33-5.43)
[2017-11-08 05:42] LABS: Albumin 2.5 g/dL (3.2-5.5); Bilirubin Total 0.5 mg/dL (0.3-1.2); Potassium 3.8 mEq/L (3.6-5.0); Protein, Total 6.7 g/dL (6.0-8.3)
[2017-11-08] MEDS: CALCIUM CARBONATE CHEW 500MG TAB PO SCH ×3 (07:30→16:36)
[2017-11-08] MEDS: ALBUTEROL 2.5 MG/3 ML NEB SOL NEB SCH ×5 (08:08→23:30)
[2017-11-08] MEDS: IPRATROPIUM BROM 0.5MG/2.5ML NEB SCH ×5 (08:08→23:30)
[2017-11-08] MEDS: TAMSULOSIN 0.4 MG SR CAP PO SCH (10:09)
[2017-11-08] MEDS: FUROSEMIDE 40 MG/4 ML VIAL IV SCH ×2 (10:10→16:56)
[2017-11-08] MEDS: METOPROLOL TAR 25 MG TAB PO SCH ×2 (10:10→21:38)
[2017-11-08] MEDS: Meropenem 500 MG in NA CHLORIDE 0.9% 100 ML IV SCH ×2 (10:15→21:37)
[2017-11-08] MEDS ORDERED: ALBUMIN HUMAN 25% 100 ML IV ONE ×2 (12:55→16:00)
[2017-11-08] MEDS: ACETAMINOPHEN 500 MG TAB PO PRN (14:14)
[2017-11-08] MEDS: SOD FERRIC GLUC COMPLX/SUCROSE 250 MG in NA CHLORIDE 0.9% 250 ML IV SCH (14:14)
--- NOTE | 2017-11-08 14:39 | EKG ---
Test Date: 2017-11-07 Test Time: 20:41:44 Bracelet Form Coverer: RT Miranda MEASUREMENT RESULTS: Intervals: Rate: 103 TX: 142 QRSD: 124 QT: 380 QTc: 497 Sylvester: P: 100 TX: 142 QRS: -50 T: 80 INTERPRETIVE STATEMENTS: Sinus tachycardia with frequent premature ventricular complexes Left anterior fascicular block Anterolateral infarct, age undetermined Abnormal ECG Compared to ECG 11/01/2017 08:54:12 Ventricular premature complex(es) now present Left anterior fascicular block now present Sinus rhythm no longer present Left-axis deviation no longer present T-wave abnormality no longer present Possible ischemia no longer present Myocardial infarct finding still present Electronically Signed On 11-08-17 14:34:27 CDT by Vijay Sandoval
[2017-11-08] MEDS: METOLAZONE 5 MG TABLET PO SCH (16:32)
[2017-11-08] MEDS: ENOXAPARIN 30 MG/0.3 ML SQ SCH (16:56)
--- NOTE | 2017-11-08 20:32 | PN ---
Date of Progress Note: 11/08/2017 Subjective: The patient is seen and examined. Chart reviewed and case discussed with RN. The patie nt is still having some difficulty breathing and not ambulating well. According to the nurses report , has been urinating over the floor. Review of Systems: Negative except as above. Medications: Reviewed. Physical Examination: Vital Signs: Temperature 98.9, heart rate 87, blood pressure 151/73, respirations 17, O2 saturation 95% on 2 L via nasal cannula. General: Awake, alert, oriented x3, in some mild distress. Ill-appearing elderly male. CV: S1, S2. Regular rate and rhythm. Peripheral pulses present. Respiratory: Diminished breath sounds. Some crackles heard. No use of accessory muscles. Gastrointestinal: Abdomen is soft, nontender, nondistended. Positive bowel sounds. Extremities: No clubbing, cyanosis, 2+ edema bilateral lower extremities. Neurologic: Nonfocal. Laboratory Data: Sodium 140, potassium 3.8, chloride 101, CO2 28, BUN 87, creatinine 4.05, glucose 1 25, calcium 8.2, albumin 2.5. WBC 7.5, H and H 8.6 and 25.9, platelets 369. Microbiology; urine cul ture shows ESBL producing E coli. Blood cultures negative. Final sputum culture shows normal quanti ty of respiratory [place]. Assessment And Plan: 1.A 77-year-old male with acute on chronic kidney injury. We will continue with IV diuresis. Shabana nue to monitor I's and O's. The patient has been urinating on the floor, therefore not really accura te. Overall, the patient has decreased his weight indicating negative fluid balance. Appreciate [facility] hrology input. 2.Acute on chronic systolic heart failure. Continue congestive heart failure guidelines. Fluid res triction. We will repeat chest x-ray. 3.Anemia of chronic disease secondary to chronic kidney disease stage 4. We will monitor H and H, t ransfuse as needed. 4.Essential hypertension, stable. 5.Urinary tract infection, acute cystitis without hematuria secondary to ESBL producing E coli. We will continue meropenem for now. 6.Gastrointestinal and deep venous thrombosis prophylaxis addressed. Plan: Discharge planning, PT. /ALFONSO Voice ID: [id number] Report ID: [id number]
[2017-11-08] MEDS: ALPRAZOLAM 0.5 MG TABLET PO PRN (21:38)
[2017-11-09] MEDS: LORazepam 2 MG/ML VIAL IV PRN (00:18)
[2017-11-09] MEDS: IPRATROPIUM BROM 0.5MG/2.5ML NEB SCH ×3 (03:15→11:15)
[2017-11-09] MEDS: ALBUTEROL 2.5 MG/3 ML NEB SOL NEB SCH ×3 (03:15→11:16)
--- NOTE | 2017-11-09 04:31 | PN ---
Date of Progress Note: 11/08/2017 Subjective: The patient still has shortness of breath. Physical Examination: Vital Signs: Blood pressure 150/93, pulse of 97, afebrile. Chest: Crackles, bilateral base. Heart: S1, S2. Regular. Abdomen: Soft, nontender. Extremities: +3 edema. Laboratory Data: The patient had urine output of 1400. WBC 7.5, H and H 8.7/25.9, platelets 396. Sodium 140, potassium 3.8, bicarb 28, BUN 87, creatinine 4 , GFR of 15, calcium 8.2, albumin 2.5. Medications: 1.Meropenem 500 b.i.d. 2.Flomax. 3.IV iron. 4.Lovenox. 5.Calcium carbonate. 6.Metoprolol. 7.Lorazepam. 8.Lasix 80. Assessment And Plan: 1.Chronic kidney disease, stage IV, over volume. I am going to continue diuresis. We will increase his metolazone to twice a day. I am going to switch his Lasix to Bumex, and we will follow up with the response. We will try to mobilize the fluids by using albumin. 2.Hypertension. We will utilize blood pressure for more diuresis. 3.Urinary tract infection, extended spectrum beta-lactamases. Continue meropenem. We will follow u p. 4.Anasarca, secondary to renal failure. 5.Cardio/renal: As above. Continue fluid restriction. Case discussed with the primary hospitalist, Dr. Kang, who agreed on the plan. TYRELL Voice ID: [id number] Report ID: [id number]
[2017-11-09 06:07] LABS: Absolute Lymphocytes (CBC) 0.9 K/uL (0.7-4.9); Absolute Monocytes 0.8 K/uL (0.1-1.3); Absolute Neutrophil 5.9 K/uL (1.8-8.0); Basophils % 0.7 % (0-1.3); Eosinophils % 4.1 % (0-4.4); Hematocrit 26.6 % (39.6-49.0); Lymphocytes % 11.5 % (15.3-44.8); MCH 28.5 pg (27.0-35.0); MCV 86.1 fL (80-100); MPV 7.8 fL (7.6-11.3); Monocytes % 9.8 % (3.3-12.3); RBC Red Blood Cell Count 3.09 M/uL (4.33-5.43)
[2017-11-09 06:11] LABS: Albumin 2.7 g/dL (3.2-5.5); Bilirubin Total 0.5 mg/dL (0.3-1.2); Potassium 3.7 mEq/L (3.6-5.0); Protein, Total 6.9 g/dL (6.0-8.3)
--- NOTE | 2017-11-09 08:33 | RAD REPORT ---
EXAM DESCRIPTION: RAD - Chest Single View - 11/09/2017 6:57 am CLINICAL HISTORY: CHF COMPARISON: 11/06/2017 FINDINGS: Portable technique limits examination quality. No significant change is seen in the bilateral pulmonary opacities since comparative study. Slight in crease in the size of bilateral pleural effusions noted. The heart is significantly prominent. No dis placed fractures. IMPRESSION: Stable CHF/ volume overload pattern.
[2017-11-09] MEDS: Meropenem 500 MG in NA CHLORIDE 0.9% 100 ML IV SCH (09:00)
[2017-11-09] MEDS ORDERED: BUMETANIDE 1 MG/4 ML VIAL IV SCH (09:00)
[2017-11-09] MEDS: METOLAZONE 5 MG TABLET PO SCH (09:00)
[2017-11-09] MEDS ORDERED: METOLAZONE 5 MG TABLET PO SCH (09:00)
[2017-11-09] MEDS ORDERED: SPIRONOLACTONE 25 MG TABLET PO SCH (09:00)
[2017-11-09] MEDS: TAMSULOSIN 0.4 MG SR CAP PO SCH (09:43)
[2017-11-09] MEDS: CALCIUM CARBONATE CHEW 500MG TAB PO SCH (09:43)
[2017-11-09] MEDS: ALPRAZOLAM 0.5 MG TABLET PO PRN (09:43)
[2017-11-09] MEDS: METOPROLOL TAR 25 MG TAB PO SCH (09:43)
--- NOTE | 2017-11-10 03:46 | PN ---
Date of Progress Note: 11/09/2017 Subjective: The patient was admitted with UTI, ESBL, over volume, chronic kidney disease. The patie nt started on diuresis, did not show much recovery. The patient is poor compliant with the fluid res triction. Yesterday, we switch him to Bumex, had 1900 urine output. Physical Examination: Vital Signs: When I saw the patient, blood pressure 155/70, pulse of 88. Chest: Crackles bilateral base. Heart: S1, S2. Regular. Abdomen: Soft, nontender. Extremities: +2 to 3 edema. Neurological: Oriented, nonfocal. Laboratory Data: GFR of 15, creatinine 4.2. No hyperkalemia. Assessment And Plan: 1.Chronic kidney disease, stage IV, advanced with slow progression, over volume. I am going to cont inue current diuresis. We will follow up. 2.Hypertension, controlled optimal. Continue current medication. 3.Anemia of chronic kidney disease. Continue IV iron. Continue Epogen. 4.Urinary tract infection, extended spectrum beta-lactamases. Continue meropenem. The patient plan to discharge against medical advice. I explained risks, benefits, and alternatives for the patient. The patient still insist. We spoke to the family in the presence of the son, explained risks, bene fits, and alternatives. The patient is going to be discharged against medical advice and we will follow up. TYRELL Voice ID: [id number] Report ID: [id number]
--- NOTE | 2017-11-10 14:58 | DS ---
Date of Discharge: 11/09/2017 Admitting Diagnoses: 1.Acute on chronic kidney injury. 2.Altered mental status. 3.Respiratory distress. Discharge Diagnoses: 1.Acute on chronic kidney injury. 2.Acute congestive heart failure exacerbation, systolic. 3.Anemia of chronic disease secondary to chronic kidney disease, stage 4. 4.Essential hypertension. 5.Urinary tract infection, acute cystitis without hematuria secondary to ESBL producing Escherichia coli, treated with meropenem. Hospital Course: The patient is a 77-year-old male, who was admitted to the hospital for shortness o f breath. The patient also had some altered mental status. The patient initially was placed on BiPA P and did have some prerenal azotemia and UTI. The patient was started on IV antibiotics. He was st arted on IV fluids for the prerenal azotemia. His creatinine did not improve significantly. He was seen by Nephrology, 2 consultants, and Dr. Olvera. The patient continued to have edema. He was al so found to have ESBL producing E. coli in his urine and his antibiotics were switched to meropenem. His Lasix was switched to Bumex and he was added on metolazone. He was thought to have possible car diorenal syndrome. The patient's workup was also initiated including serology testing, immunology te sting. The patient's blood cultures were negative final. The patient did have improvement in his me ntal status. He did continue to require some oxygen, however, was weaned to approximately 2 L and sa turating 100%. The patient then completed his treatment with meropenem for his ESBL producing E. col i. He is uninsured and is undocumented immigrant, therefore does not have resources for PICC line or further IV antibiotics. The patient, however, was not improving. His chest x-ray showed worsening pleural effusions and was heading towards requiring dialysis. However, the patient decided to leave against medical advice. He was counseled and he understood the risks. Family members present at the bedside. The patient still wished to leave and signed out AMA. Physical Examination: General: Awake, alert, oriented x3, no acute distress, elderly male. CV: S1, S2. Peripheral pulses present. Respiratory: Diminished breath sounds. Some crackles at the bases. Gastrointestinal: Abdomen is soft, nontender, and nondistended. Positive bowel sounds. Extremities: No clubbing, cyanosis. Diffuse peripheral edema of the lower extremities. Neurologic: Nonfocal. SA/MODL Voice ID: [id number] Report ID: [id number]
== END 2017-11-09 11:52 | disposition left against medical advice (07) | DRG 291 ==
LOC: ER 17:01 → ERHOLD 20:37 → 2ND 22:17
PROVIDERS: ADMIT Hospitalist; ATTEND Family Medicine
PROC: 5A09357 Assistance with Respiratory Ventilation, Less than 24 Consecutive Hours, Continuous Positive Airway Pressure (ICD-10-PCS; principal; 2017-10-31)
DX: I13.0 Hypertensive heart and chronic kidney disease with heart failure and stage 1 through stage 4 chronic kidney disease, or unspecified chronic kidney disease (principal); N17.0 Acute kidney failure with tubular necrosis; I50.23 Acute on chronic systolic (congestive) heart failure; N30.00 Acute cystitis without hematuria; N18.4 Chronic kidney disease, stage 4 (severe); N25.81 Secondary hyperparathyroidism of renal origin; R06.03 Acute respiratory distress; D63.1 Anemia in chronic kidney disease; B96.20 Unspecified Escherichia coli [E. coli] as the cause of diseases classified elsewhere
CPT/HCPCS: 36415; 70450; 71045; 76770; 78710; 80048; 80053; 80069; 80076; 80307; 80320; 81003; 81015; 82140; 82550; 82553; 82570; 82607; 82728; 82746; 82805; 83520; 83540; 83605; 83735; 83970; 84156; 84165; 84443; 84466; 84484; 84550; 85025; 85044; 85610; 86021; 86038; 86160; 86225; 86317; 86704; 86706; 87040; 87070; 87077; 87086; 87088; 87186; 87205; 87340; 87389; 87522; 93005; 93306; 94640; 94660; 94760; 96374; 99285; A9562; J0456; J0696; J1650; J2270; J2916; J7030; P9047